=== PATIENT | male | born 1970 | race Caucasian/White ===

== ENCOUNTER 2016-07-12 06:13 | Inpatient (IN) ==
[2016-07-12] MEDS ORDERED: CeFAZolin Pre 2,000 MG/100 ML 2,000 MG/100 ML BAG IVPB ONE (06:49)
[2016-07-12] MEDS ORDERED: Heparin 1,000 UNITS/500 mL NS 500 ML ONE ×3 (06:54→16:31)
[2016-07-12] MEDS ORDERED: *HR* Propofol 200 MG/20 ML VIAL IVP ONE (06:56)
[2016-07-12] MEDS ORDERED: Lidocaine -MPF 2% 2 ML VIAL ONE (06:56)
[2016-07-12] MEDS ORDERED: *HR* Rocuronium Bromide 50 MG/5 ML VIAL ONE (06:56)
[2016-07-12] MEDS ORDERED: *HR* FentaNYL (PF) 100 MCG/2 ML VIAL ONE ×3 (06:56→14:16)
[2016-07-12] MEDS ORDERED: *HR* Midazolam HCl 2 MG/2 ML VIAL ONE (06:56)
[2016-07-12] MEDS ORDERED: *HR* Succinylcholine 200 MG/10 ML VIAL IVP ONE (06:56)
[2016-07-12] MEDS ORDERED: Lidocaine -MPF 4% 5 ML AMPUL ONE (06:56)
[2016-07-12] MEDS ORDERED: Ringers Solution, Lactated 1,000 ML IVC SCH (07:00)
[2016-07-12] MEDS ORDERED: Albuterol 2.5 MG/3 ML NEBULIZER ONE (07:02)
[2016-07-12] MEDS ORDERED: Albuterol 2.5 MG/3 ML NEBULIZER IH ONE (07:05)
--- NOTE | 2016-07-12 07:17 | Anesthesia Evaluation PreOp ---
Date of Encounter: 07/12/16 Time of Encounter: 07:16 - Past History Planned Operation: L fem-pop Cardiac History: [place] (1995 - medically managed), HTN, Hyperlipidemia, Other ( Severe PAD bilateral LE) Pulmonary History: Smoker, Asthma (mild) Other Medical History: Denies Any Significant HX Anesthesia History: No Prior Anesthetic Complications Alcohol Use: occasionally, recent Drug use: marijuana Medications and Allergies OxyCODONE/APAP 5/325 [Percocet 5/325 MG] 1 each PO Q8HR PRN #6 tablet 02/16/16 [ Rx] HYDROcodone/Acet 5/325 mg [Myrtle 5-325 mg] 1 tab PO Q4H PRN #15 tab 06/18/16 [Rx ] Ketorolac [Toradol] 10 mg PO Q6HR PRN #10 tablet 06/18/16 [Rx] Allergies propoxyphene [From Darvocet-N] Allergy (Verified 07/12/16 07:15) Hives - Meds/Allergy Pre-op Review Medications Reviewed: Yes Allergies Reviewed: Yes Beta Blockers on Current Med List: No Anesthesia Results - Labs Laboratory Tests 07/20/14 06/17/16 06/17/16 13:05 21:24 23:55 WBC 12.0 H Hgb 14.6 Hct 42.6 Plt Count 333 PT INR APTT Sodium 140 Potassium 4.2 Chloride 109 Carbon Dioxide 17 L BUN 8 Creatinine 0.95 Est GFR ( Amer) > 60 Est GFR (Non-Af Amer) > 60 BUN/Creatinine Ratio 8 Glucose 88 Lactic Acid 0.9 Calculated Osmolality 288 Calcium 10.2 07/06/16 09:30 WBC Hgb Hct Plt Count PT 11.1 INR 1.0 APTT 33.4 Sodium Potassium Chloride Carbon Dioxide BUN Creatinine Est GFR ( Amer) Est GFR (Non-Af Amer) BUN/Creatinine Ratio Glucose Lactic Acid Calculated Osmolality Calcium - Imaging EKG: report reviewed, image reviewed (SR) Additional studies: nuclear stress test: Perfusion imaging negative for ischemia/infarct pharm ECG negative for ischemia at level of HR achieved Gated EF = 66% Anesthesia Exam Last Vital Signs Temp 99.1 F 07/12/16 06:28 Pulse 63 07/12/16 06:28 Resp 18 07/12/16 06:28 BP 120/71 07/12/16 06:28 Pulse Ox 97 07/12/16 06:28 Weight: 76 kg NPO (# of Hours): >> 8 hrs - HEENT Pupil (Motor): Pupils equal, EOMI Mallampati: III Teeth: Poor dentition Oral Opening: Greater than 3 - [employer] SUPER[employer]OR LOC: Oriented - Cardiac Rhythm: Regular Murmur: None - Pulmonary Breath Sounds: bilateral Clear Respiratory Effort: Symmetrical Anesthesia Assess/Plan ASA Score: 3 Modified [place] Scale for Level of Consciousness: Cooperative, oriented, and tranquil Anesthetic Plan: General Monitoring Plan: Standard Monitors, A-Line Recovery Plan: PACU
--- NOTE | 2016-07-12 07:37 | History & Physical Report ---
Date of Encounter: 07/12/16 Time of Encounter: 07:25 24 Hour HP Update - Instructions Instructions: If the History and Physical is less than 30 days old and was completed prior to A.M. admission and or procedure and has NOT been updated on calendar day of procedure please complete this update prior to performing procedure. - Update Patient reports changes in Medical Condition: Yes Changes in assessment/condition: Yes Changes in Medication: Yes Preop tests/diagnostics Reviewed: Yes Surgery Remains Indicated: Yes Consent for Planned Operative Procedure(s) Verified: Yes - Pre-Operative Checklist Preoperative Checklist Indicated: Yes Prophylactic Antibiotic Ordered: Yes Home Medications Include Beta Dirk: No Beta Dirk Taken Today (Day of Surgery): No Beta Dirk Taken Yesterday (Day Prior to Surgery): No Is VTE Prophylaxis Indicated?: Yes
[2016-07-12] MEDS ORDERED: Dexamethasone 4 MG/ML VIAL ONE (08:18)
[2016-07-12] MEDS ORDERED: *HR* HYDROmorphone 2 MG/ML SYRINGE ONE (08:30)
[2016-07-12] MEDS ORDERED: *HR* Promethazine 25 MG/ML VIAL IVP PRN (08:37)
[2016-07-12] MEDS ORDERED: *HR* Labetalol 100 MG/20 ML MDV IVP PRN (08:37)
[2016-07-12] MEDS ORDERED: *HR* Heparin 5,000 UNIT/ML VIAL ONE ×2 (09:08→13:20)
[2016-07-12] MEDS ORDERED: Ondansetron 4 MG/2 ML VIAL ONE (13:18)
--- NOTE | 2016-07-12 14:20 | Operative Note ---
Date of procedure: 07/12/16 Pre-op diagnosis: pad/claudication Post-op diagnosis: same Procedure: left femoral to posterior tibial bypass graft with 6 mm PTFE distaflo Biopsy of left superficial femoral artery. Complications: none Anesthesia: GETA Surgeon: Terrence Nielson Estimated blood loss (cc): 200 Specimen: left SFA Condition: stable Disposition: PACU Procedure in Detail: History Kj Yoo is a 45-year-old white male who has a long history of lower extremity pain. He was eventually referred to vascular surgery after noninvasive testing revealed marked abnormalities particularly of his left lower extremity. A CT angiogram was performed on May 26 that demonstrated significant left superficial femoral and popliteal and tibial artery occlusions. The distribution was unusual and the possibility of an inflammatory condition such as Buerger's disease was raised by the interpreting radiologist. In addition the patient has proximal tibial artery occlusions on the right side. The patient now comes to the operating room today for the first time for an attempt at revascularizing the symptomatic and lifestyle limiting left lower extremity. Procedure After informed consent was obtained the patient was taken to the operating room. General endotracheal anesthesia was established under arterial line pressure monitoring. The left lower extremity was sterilely prepped and draped. A timeout protocol was observed. Because of the nature of his CT scan findings the initial dissection was at the below the knee popliteal and proximal tibial area. Dissection here revealed marked abnormalities with dense inflammatory changes involving all of the arteries in this region. The vessels were white and sclerotic in appearance without Doppler signals within them. They appeared to be lifeless vessels with chronic inflammatory changes. In order to find a suitable vessel for a distal anastomosis the dissection was carried more distally into the midportion of the calf. Here the posterior tibial artery was identified as soft and did have a Doppler signal. This corresponded to the findings on the CT angiogram preoperatively. The vessel measured approximately 4 mm in diameter and was soft. Attention was then directed to the inflow vessel. An oblique incision was made in the left groin and dissection was carried down to the common femoral artery and bifurcation. The superficial femoral artery was also densely inflamed and had the White lifeless appearance as the more distal vessels. The common femoral artery was soft and had an excellent pulse. The profunda femoris appeared to be spared as well. Attention was then directed to the greater saphenous vein. This was identified in the groin and was dissected along the course of the vein on the medial aspect of the left thigh. In the distal one fourth of the left thigh the vein contracted to a very small diameter. Attempts at trying to dilate this by dissecting other areas and opening the region with heparinized saline were unsuccessful and unsatisfactory. Therefore the vein was rejected as a suitable conduit to create this bypass graft. Therefore a synthetic graft would be necessary and a 6 mm PTFE Distaflo was selected. A subsartorial tunnel was created and then the patient was heparinized with 5000 units of heparin intravenously. The distal anastomosis was created first due to the fluted end of the Distaflo graft. The posterior tibial artery was opened and significant flow from the collaterals were noted though there was no antegrade flow. Retrograde flow was also observed. The anastomosis was then fashioned and in an end to side configuration using 6-0 Prolene. The graft was unclamped and the surrounding vessels were freed. Attention was then directed to the proximal aspect. An arteriotomy was made over the distal anterior aspect of the common femoral artery. An end-to-side graft anastomosis was created using 6-0 Prolene. After appropriate backbleeding and flushing the graft was opened and pulsatile flow was then achieved into the posterior tibial artery with a strong biphasic signal identified at the ankle. The incisions were then irrigated and hemostasis achieved. The incisions were closed using absorbable suture. There were no intraoperative complications. The estimated blood loss was 200 mL. Because of the inflammatory changes a section of the chronically thrombosed proximal left superficial femoral artery was dissected and harvested and submitted as a formal biopsy in formalin. The vessel upon visual inspection was a sclerotic scarred structure with inflammatory changes in the surrounding periadventitial material. There were no fresh clot or signs of dissection.
[2016-07-12] MEDS: *HR* HYDROmorphone (PF) 1 MG/ML SYRINGE IVP PRN ×9 (14:35→22:10)
[2016-07-12] MEDS ORDERED: *HR* HYDROmorphone (PF) 1 MG/ML SYRINGE ONE (15:05)
--- NOTE | 2016-07-12 15:46 | Anesthesia Evaluation Post Op ---
Date of Encounter: 07/12/16 Time of Encounter: 15:45 - Vital Signs Vital Signs: Vital Signs/O2 Sat/Glucose, Most Current Temp Pulse Resp BP Pulse Ox 07/12/16 15:28 98.9 F 66 16 131/69 99 07/12/16 15:18 70 16 142/70 100 07/12/16 15:08 80 14 151/85 100 07/12/16 14:58 99 F 73 16 142/88 99 07/12/16 14:48 64 16 148/92 98 07/12/16 14:38 70 16 138/100 100 07/12/16 14:28 98.8 F 76 14 141/116 100 - Lungs Lungs: Clear Ascult./Percussion - Airway Airway: Non-obstructed - Cardiovascular Regular Rate - Mental Status Mental Status: Alert & Oriented, Answers Appropriately - Pain Pain Scale: 0 - Nausea Vomiting Nausea Vomiting: Not Present - Hydration Hydration: Ice chips - Discharge PostOp Status: Transfer Patient to floor
[2016-07-12] MEDS ORDERED: Ondansetron 4 MG/2 ML VIAL IVP PRN (15:55)
[2016-07-12] MEDS ORDERED: Acetaminophen 325 MG TABLET PO PRN (15:55)
[2016-07-12] MEDS ORDERED: Naloxone 0.4 MG/ML INJ IVP PRN (15:55)
[2016-07-12] MEDS ORDERED: tiZANidine 4 MG TABLET PO PRN (15:55)
[2016-07-12] MEDS ORDERED: *HR* Morphine 2 MG/ML SYRINGE ONE (15:58)
[2016-07-12] MEDS: *HR* Morphine 2 MG/ML SYRINGE IVP PRN ×2 (16:00→16:17)
[2016-07-12] MEDS ORDERED: *HR* HYDROmorphone (PF) 1 MG/ML SYRINGE IM ONE (16:14)
[2016-07-12] MEDS: Gabapentin 400 MG CAPSULE PO SCH ×2 (16:25→19:55)
[2016-07-12] MEDS: ceFAZolin 2,000 MG in D5% in Water 100 ML IVPB SCH (16:40)
[2016-07-12] MEDS: *HR* HYDROcodone/Acet 5/325 mg TABLET PO PRN (20:57)
[2016-07-12] MEDS ORDERED: Loratadine 10 MG TABLET PO SCH (21:00)
[2016-07-13] MEDS: *HR* HYDROmorphone (PF) 1 MG/ML SYRINGE IVP PRN ×7 (00:17→13:29)
[2016-07-13] MEDS: ceFAZolin 2,000 MG in D5% in Water 100 ML IVPB SCH (00:18)
[2016-07-13 04:33] LABS: Basophils % 0.2 %; Eosinophils # 0.1 K/mcL (0.0-0.6); Eosinophils % 1.1 %; Hematocrit 32.5 % (37.5-50.1); Hemoglobin 11.1 g/dL (12.9-16.9); Immature Granulocytes % 0.2 % (0-4); Lymphocytes # 3.3 K/mcL (0.6-4.6); Lymphocytes % 32.9 %; Mean Corpuscular HGB Conc 34.2 g/dL (31.6-35.5); Mean Corpuscular Hemoglobin 31.1 pg (28.0-33.3); Mean Platelet Volume 8.8 fL (9.4-12.4); Monocytes # 0.9 K/mcL (0.0-1.3); Monocytes % 9.4 %; Neutrophils # 5.6 K/mcL (1.6-8.9); Platelet Count 283 K/mcL (140-400); Red Blood Count 3.57 M/mcL (4.19-5.50); Red Cell Distribution Width 12.3 % (11.5-14.5); Segmented Neutrophils % 56.2 %
[2016-07-13 04:51] LABS: BUN/Creatinine Ratio 13 (6-26); Blood Urea Nitrogen 10 mg/dL (8-26); Calcium 8.5 mg/dL (8.6-10.8); Carbon Dioxide 23 mEq/L (19-29); Chloride 106 mEq/L (98-109); Glucose 117 mg/dL (70-99); Osmolality,Calculated 288 (280-300); Potassium 4.2 mEq/L (3.5-4.5); Sodium 139 mEq/L (136-145); eGFR For African Americans > 60 (> 60); eGFR For Non-African Americans > 60 (> 60)
[2016-07-13] MEDS: *HR* HYDROcodone/Acet 5/325 mg TABLET PO PRN (07:37)
[2016-07-13] MEDS: Gabapentin 400 MG CAPSULE PO SCH ×2 (07:45→17:20)
[2016-07-13] MEDS ORDERED: valACYclovir 500 MG TABLET PO SCH (09:00)
[2016-07-13] MEDS: *HR* OxyCODONE/APAP 5/325 TABLET PO PRN ×2 (12:17→16:05)
[2016-07-13 15:23] VITALS: BP 117/81
[2016-07-13] MEDS ORDERED: *HR* Rivaroxaban 10 MG TABLET PO SCH (17:00)
--- NOTE | 2016-07-13 17:15 | Discharge Summary ---
Date of Encounter: 07/13/16 Time of Encounter: 17:10 - Discharge Diagnosis (1) PAD (peripheral artery disease) Priority: Primary Status: Acute Comments: Patient has long history of bilateral lower extremity leg pain. The patient has abnormal noninvasive testing and an abnormal CT angiogram. He has an odd distribution all of the occlusive disease involving on the left side the superficial femoral and popliteal and tibial vessels. On the right side the occlusions are more focal to the proximal third of the tibial vessels. - Discharge Medications Prescriptions: OxyCODONE/APAP 5/325 [Percocet 5/325 MG] 1 each PO Q4HR PRN #40 tablet PRN Reason: Pain Rivaroxaban [Xarelto] 20 mg PO 1700 #30 tablet Home Medications: Cetirizine HCl [Zyrtec] 10 mg PO HS 07/12/16 [History] Cilostazol [Pletal] 100 mg PO BID 07/12/16 [History] Gabapentin [Neurontin] 800 mg PO TID 07/12/16 [History] Tizanidine HCl 4 mg PO TID PRN 07/12/16 [History] Valacyclovir HCl [Valtrex] 1,000 mg PO DAILY 07/12/16 [History] OxyCODONE/APAP 5/325 [Percocet 5/325 MG] 1 each PO Q4HR PRN #40 tablet 07/13/16 [Rx] Rivaroxaban [Xarelto] 20 mg PO 1700 #30 tablet 07/13/16 [Rx] Allergies/Adverse Reactions: Allergies propoxyphene [From Darvocet-N] Allergy (Verified 07/12/16 07:15) Hives Date of admission: 07/12/16 14:30 Primary care physician: Flash Mcrae DO Consults: 07/12/16 17:39 Consult to Speech And Drama Teacher [CONS] Routine Reason for SW Consult: evaluate for Xarelto tx as an out patient for graft patency 07/13/16 11:26 Consult to Occupational Therapy [CONS] Routine Comment: Evaluate, develop and implement POC Consult to Physical Therapy [CONS] Routine Comment: Evaluate, develop and implement POC Procedure(s) Performed: Left femoral to posterior tibial artery bypass graft with 6 mm PTFE Distaflo and left superficial femoral artery excisional biopsy. Discharging clinician: Terrence Nielson Anticipated date of discharge: 07/13/16 - Patient Status Disposition: Home, Self-Care Condition: Good Functional capacity at discharge: uses cane/walker Overall status at discharge: patient is progressing back to baseline - Discharge Instructions Follow Up With: Flash Mcrae DO [Primary Care Provider] - 07/19/16 11:30 am Terrence Nielson MD [Partnered Physician] - 07/27/16 9:30 am Additional Instructions: Keep left lower extremity incisions dry for total of 5 days following surgery. No automobile driving. Patient is encouraged to ambulate every day for 20 minutes twice a day. Patient may ambulate both inside and outside. Patient may use stairs as tolerated. Patient is to elevate left lower extremity while at rest. - Diet and Activity Activity: increase activity as tolerated Diet: low fat, low cholesterol - Hospital Course Hospital course: Mr. Yoo is a 45 year old male With bilateral lower extremity pain. He had been treated in conservative fashion in an attempt to try to cease all tobacco use and increased physical activity and use cilostazol. The patient did not have any significant improvement with these efforts and was unable to stop smoking. His lifestyle is significantly impacted and the patient had requested revascularization to try to enhance his status. The patient was admitted yesterday and underwent surgery for left lower extremity reconstruction. The patient was found to have extensive vascular occlusions as depicted on his preoperative CT angiogram. The greater saphenous vein was found to be inadequate for use as a conduit and so therefore a synthetic graft was necessary. The bypass graft extends from his left common femoral artery to the left posterior tibial artery. Because of the synthetic graft going to a tibial vessel anticoagulation was recommended and he was initiated on Zarontin. This will be continued indefinitely in order to prolong graft patency. Following surgery the patient had an uneventful course. He had some difficulties bearing weight on his left leg as expected due to the extensive muscular dissection in order to identify the posterior tibial artery and to create the anastomosis. The patient had a strong Doppler signal at the ankle of the posterior tibial artery. No Doppler signals were identified in the dorsalis pedis or peroneal artery at the ankle. Instructions in regards to his diet and exercise and wound care was provided to the patient prior to discharge. The patient was seen by physical therapy prior to his discharge. He was aided in his ambulation with a walker and a prescription for this will be given to the patient upon discharge. Time spent discussing smoking cessation with patient: 3 to 10 minutes (Complete tobacco cessation was emphasized with the patient.) - Time Spent with Patient Total time spent providing and/or coordinating discharge services: Exam Vital Signs, Last 4 Hours Temp Pulse Resp BP Pulse Ox 07/13/16 15:22 99.9 F H 70 18 117/81 98 07/13/16 15:18 99.1 F 101 20 146/84 97 07/13/16 15:00 78 General: Present: Conversant, No Apparent Distress HEENT: Present: Atraumatic Neck: Absent: JVD Cardiac: Present: Reg Rate and Rhythm Neuro: Present: Alert and responsive, No focal deficits noted, Cranial nerves grossly intact Abdomen: Present: Soft, Non-tender Vascular: Present: Color/Temperature (Normal left foot color and temperature.), Other (Doppler signals over posterior tibial artery at ankle.) Skin: Present: No rashes noted on visualized skin - VTE Documentation of Mechanical Device: Intermittent pneumatic compression device
== END 2016-07-13 18:55 | disposition home or self-care (01) | DRG 181 ==
LOC: SAMDAY 06:13 → 2NNU 14:30
PROVIDERS: ADMIT Surgery Vascular Surgery; ATTEND Surgery Vascular Surgery

== ENCOUNTER 2016-11-15 10:07 | Inpatient (IN) ==
[~2016-11-15 10:07] MED LIST: *HR* FentaNYL (PF) 100 MCG/2 ML VIAL ONE; *HR* Midazolam HCl 2 MG/2 ML VIAL ONE; *HR* Propofol 200 MG/20 ML VIAL IVP ONE; *HR* Succinylcholine 200 MG/10 ML VIAL IVP ONE; Lidocaine -MPF 2% 2 ML VIAL ONE; Lidocaine -MPF 4% 5 ML AMPUL ONE
[2016-11-15] MEDS ORDERED: *HR* Heparin 5,000 UNIT/ML VIAL ONE (10:11)
[2016-11-15] MEDS ORDERED: Albuterol 2.5 MG/3 ML NEBULIZER IH ONE (10:27)
[2016-11-15] MEDS ORDERED: CeFAZolin Pre 2,000 MG/100 ML 2,000 MG/100 ML BAG IVPB ONE (10:27)
[2016-11-15] MEDS ORDERED: Lidocaine -MPF 1% 2 ML VIAL ID ONE (10:27)
[2016-11-15] MEDS ORDERED: Albuterol 2.5 MG/3 ML NEBULIZER ONE (10:29)
[2016-11-15] MEDS ORDERED: Ringers Solution, Lactated 1,000 ML IVC SCH (10:30)
[2016-11-15] MEDS ORDERED: Ondansetron 4 MG/2 ML VIAL ONE ×2 (10:44→18:09)
[2016-11-15] MEDS ORDERED: Dexamethasone 4 MG/ML VIAL ONE ×2 (10:44→18:09)
--- NOTE | 2016-11-15 11:16 | Anesthesia Evaluation PreOp ---
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 Other Medical History: Denies Any Significant HX Anesthesia History: No Prior Anesthetic Complications, Past Anesthesia (L fem- pop with synthetic graft, ex-lap (small bowel), cholecystectomy, T&A) Alcohol Use: occasionally, recent Drug use: marijuana Medications and Allergies Cetirizine HCl [Zyrtec] 10 mg PO HS 07/12/16 [History] Cilostazol [Pletal] 100 mg PO BID 07/12/16 [History] Gabapentin [Neurontin] 800 mg PO TID 07/12/16 [History] Valacyclovir HCl [Valtrex] 1,000 mg PO DAILY PRN 07/12/16 [History] Allergies propoxyphene [From Darvocet-N] Allergy (Verified 11/15/16 10:31) Hives - Meds/Allergy Pre-op Review Medications Reviewed: Yes Allergies Reviewed: Yes Beta Blockers on Current Med List: No Anesthesia Results - Labs Laboratory Tests 11/12/16 11/12/16 11/12/16 12:53 12:53 12:53 WBC 5.7 Hgb 14.2 Hct 43.1 Plt Count 351 PT 10.5 INR 1.0 APTT 33.2 Sodium 142 Potassium 4.3 Chloride 110 H Carbon Dioxide 22 BUN 10 Creatinine 0.89 Est GFR ( Amer) > 60 Est GFR (Non-Af Amer) > 60 BUN/Creatinine Ratio 11 Glucose 109 H Calculated Osmolality 294 Calcium 9.7 - Imaging EKG: report reviewed, image reviewed (SR) Anesthesia Exam Last Vital Signs Temp 98.4 F 11/15/16 10:33 Pulse 66 11/15/16 10:33 Resp 18 11/15/16 10:40 BP 114/74 11/15/16 10:33 Pulse Ox 96 11/15/16 10:40 Weight: 78 kg NPO (# of Hours): >> 8 hrs - HEENT Pupil (Motor): Pupils equal, EOMI Mallampati: III Teeth: Poor dentition Oral Opening: Greater than 3 - ELECTRONICS WORKER LOC: Oriented - Cardiac Rhythm: Regular Murmur: None - Pulmonary Breath Sounds: bilateral Clear Respiratory Effort: Symmetrical Anesthesia Assess/Plan ASA Score: 3 Modified [place] Scale for Level of Consciousness: Cooperative, oriented, and tranquil Anesthetic Plan: General Monitoring Plan: Standard Monitors, A-Line Recovery Plan: PACU
--- NOTE | 2016-11-15 11:27 | History & Physical Report ---
Date of Encounter: 11/15/16 Time of Encounter: 11:27 24 Hour HP Update - Instructions Instructions: If the History and Physical is less than 30 days old and was completed prior to A.M. admission and or procedure and has NOT been updated on calendar day of procedure please complete this update prior to performing procedure. - Update Patient reports changes in Medical Condition: No Changes in examination, assessment, or condition: No Changes in Medication: No Preop tests/diagnostics Reviewed: Yes Surgery Remains Indicated: Yes Consent for Planned Operative Procedure(s) Verified: Yes - Pre-Operative Checklist Preoperative Checklist Indicated: Yes Prophylactic Antibiotic Ordered: Yes Home Medications Include Beta Dirk: No Beta Dirk Taken Today (Day of Surgery): No Beta Dirk Taken Yesterday (Day Prior to Surgery): No Is VTE Prophylaxis Indicated?: Yes
[2016-11-15] MEDS ORDERED: Heparin 1,000 UNITS/500 mL NS 500 ML ONE ×3 (11:30→17:12)
[2016-11-15] MEDS ORDERED: Acetaminophen IV 1,000 MG/100 ML INFUS..BTL ONE (11:40)
[2016-11-15] MEDS ORDERED: Gabapentin 300 MG CAPSULE ONE (11:40)
[2016-11-15] MEDS ORDERED: Heparin 1,000 UNITS/500 mL NS 0 ML ONE (11:52)
[2016-11-15] MEDS ORDERED: *HR* Promethazine 25 MG/ML VIAL IVP PRN (15:53)
[2016-11-15] MEDS ORDERED: *HR* Labetalol 100 MG/20 ML MDV IVP PRN (15:53)
[2016-11-15] MEDS ORDERED: *HR* HYDROmorphone 2 MG/ML SYRINGE ONE (16:54)
--- NOTE | 2016-11-15 18:27 | Operative Note ---
Date of procedure: 11/15/16 Pre-op diagnosis: PAD/claudication Post-op diagnosis: same Procedure: left fem-TPT bypass graft thrombectomy tibial thrombectomy revision of bypass with jump graft extension to distal posterior tibial artery with reversed greater saphenous vein intra operative ultrasound for vein mapping Complications: none Anesthesia: GETA Surgeon: Terrence Nielson Estimated blood loss (cc): 300 Specimen: none Condition: stable Disposition: PACU Procedure in Detail: History Kj Yoo is a 45-year-old white male who had undergone previous bypass grafting with a left femoral to tibial peroneal trunk with endarterectomy. The graft has gone on to thrombose and return of his left lower extremity symptoms. These are lifestyle limiting with a dramatic drop in his ankle brachial index and loss of palpable popliteal and pedal pulses. Because of these symptoms patient was recommended to undergo surgery in order to revascularize the left lower extremity to permit him a more active and functional lifestyle. Procedure After informed consent was obtained patient was taken the operating room. General endotracheal anesthesia was established. The left lower extremity was sterilely prepped and draped. A timeout protocol was observed. The operation was initiated at the below the knee popliteal incision from the previous operation. Dissection was carried down to identify the graft and the distal anastomosis. This area was densely inflamed with extremely difficult and tedious dissection necessary in order to free up the graft and identify the [place] vessels. With this finally done after much labor and incision was made over the graft near the root of the graft. Chronic thrombus was identified. There is no back bleeding either from the graft or from the [place] vessels at the calf. The graft itself was collapsed. A 3 and 4 [place] catheter was then passed retrograde. Pulsatile flow was unable to be restored. Therefore a second incision was made in the groin. The previously made groin incision was then reopened and dissection was carried down to reveal the graft anastomosis to the common femoral artery. Again there was marked inflammatory change in this area and dense scar tissue. This area was controlled and a transverse graftotomy made. Should be noted patient was placed on intravenous heparin bolus during this time. Again chronic thrombus and intimal hyperplasia was encountered. The debris in the common femoral area was removed. Excellent pulsatile flow was achieved. The graftotomy here proximal was then closed with 6 -0 Prolene. Attention was then directed back to the distal aspect. Attempting to pass a catheter into the [place] vessels at the tibial peroneal trunk and tibial runoff was unsuccessful. Therefore was elected to remove the anastomosis from the artery. Upon doing so it was found that the tibial peroneal trunk was totally obliterated. No lumen could be identified despite the attempts at passing the 3 [place] catheter to thrombectomize the tibial vessels. With this done there was no option to manipulate the original distal anastomosis as this vessel was beyond reconstruction and the patient's prognosis is extremely grim. Therefore the incision was extended and the posterior tibial artery more distally was identified. This vessel was soft and appeared to be patent. There was no inflammatory change directly around this vessel. Due to the size discrepancy between the synthetic graft in the [place] vessel it was judged inappropriate to try to use a synthetic graft into this smaller tibial artery. Also the patient's track record is poor with this synthetic graft. Therefore the hybrid solution was sought. An ultrasound was then performed at the patient's bedside. An ultrasound was made of the soft tissue in order to identify a usable vein at the level of the ankle. This was identified and found to be a compressible vein appropriate in diameter of approximately 3 mm. Therefore a incision was made at the ankle and carried up to the calf incision previously extended so that the greater saphenous vein at the lower part of the leg could be identified and harvested. This was taken and the vein was flushed. The vein was then placed in a reversed orientation. An end -to-end anastomosis was made between the vein and the transected synthetic graft from the area of the previous tibial peroneal trunk bypass. After this was done an arteriotomy was made over the distal posterior tibial artery. This was a soft vessel. There is no intraluminal thrombus. There were some changes of atherosclerotic material proximally. The vessel was then flushed proximally and distally with heparinized saline. An end of the vein to side of the artery anastomosis was then performed with 6-0 Prolene. After appropriate backbleeding and flushing the graft was opened. The flow was unsatisfactory. Therefore the graft in the upper thigh was explored. It was opened and a repeat graft exploration was made with thrombectomy using the 4 [place] catheter. Particular attention was paid to place the graft through the proximal anastomosis and into the [place] iliac circulation. Upon doing this excellent pulsatile flow was then reassessed established as was done earlier during this case. Excellent pulsatile flow was demonstrated in the graft and into the posterior tibial artery. This last graftotomy performed at the previously placed graft was then closed with 6-0 Prolene. Excellent pulsatile flow was established. Doppler signals are identified at the posterior tibial and peroneal artery at the ankle. The wounds were then all irrigated and hemostasis achieved. The wounds were closed in layers using absorbable suture. Dry sterile dressings were applied. The patient was excreted in the operating room and taken to the recovery room in stable condition. There were no intraoperative complications. Estimated blood loss is 300 mL.
[2016-11-15] MEDS: *HR* HYDROmorphone (PF) 1 MG/ML SYRINGE IVP PRN ×4 (18:59→19:17)
--- NOTE | 2016-11-15 19:39 | Anesthesia Evaluation Post Op ---
Date of Encounter: 11/15/16 Time of Encounter: 19:39 - Vital Signs Vital Signs: Vital Signs/O2 Sat, Most Current Temp Pulse Resp BP Pulse Ox 98.1 F 68 16 121/88 99 11/15/16 19:35 11/15/16 19:35 11/15/16 19:35 11/15/16 19:35 11/15/16 19:35 - Lungs Lungs: Clear Ascult./Percussion - Airway Airway: Non-obstructed - Cardiovascular Regular Rate - Mental Status Mental Status: Asleep with brisk response to light stimulation - Pain Pain Scale: 6 Pain Scale used: Numeric (1 - 10) - Nausea Vomiting Nausea Vomiting: Not Present - Hydration Hydration: NPO, Reis catheter - Discharge PostOp Status: Transfer Patient to floor
[2016-11-15] MEDS ORDERED: Ondansetron 4 MG/2 ML VIAL IVP PRN (19:53)
[2016-11-15] MEDS ORDERED: Acetaminophen 325 MG TABLET PO PRN (19:53)
[2016-11-15] MEDS ORDERED: Naloxone 0.4 MG/ML INJ IVP PRN (19:53)
[2016-11-15] MEDS ORDERED: valACYclovir 500 MG TABLET PO PRN (19:53)
[2016-11-15] MEDS: Gabapentin 400 MG CAPSULE PO SCH (20:47)
[2016-11-15] MEDS: *HR* Morphine 2 MG/ML SYRINGE IVP PRN ×2 (20:50→23:04)
[2016-11-15] MEDS ORDERED: Loratadine 10 MG TABLET PO SCH (21:00)
[2016-11-15] MEDS: ceFAZolin 2,000 MG in D5% in Water 100 ML IVPB SCH (23:04)
[2016-11-16] MEDS: *HR* Morphine 2 MG/ML SYRINGE IVP PRN ×6 (01:02→12:12)
[2016-11-16 05:48] LABS: Basophils % 0.1 %; Eosinophils % 0.1 %; Hematocrit 36.3 % (37.5-50.1); Immature Granulocytes % 0.4 % (0-4); Lymphocytes % 7.6 %; Mean Corpuscular HGB Conc 33.1 g/dL (31.6-35.5); Mean Corpuscular Hemoglobin 29.9 pg (28.0-33.3); Mean Corpuscular Volume 90.5 fL (83.0-100.0); Mean Platelet Volume 9.2 fL (9.4-12.4); Monocytes # 0.4 K/mcL (0.0-1.3); Monocytes % 3.9 %; Neutrophils # 9.8 K/mcL (1.6-8.9); Platelet Count 279 K/mcL (140-400); Red Blood Count 4.01 M/mcL (4.19-5.50); Red Cell Distribution Width 13.3 % (11.5-14.5); Segmented Neutrophils % 87.9 %
[2016-11-16 05:50] LABS: BUN/Creatinine Ratio 11 (6-26); Blood Urea Nitrogen 9 mg/dL (8-26); Calcium 9.3 mg/dL (8.6-10.8); Carbon Dioxide 27 mEq/L (19-29); Chloride 108 mEq/L (98-109); Glucose 143 mg/dL (70-99); Osmolality,Calculated 295 (280-300); Potassium 4.3 mEq/L (3.5-4.5); Sodium 142 mEq/L (136-145); eGFR For African Americans > 60 (> 60); eGFR For Non-African Americans > 60 (> 60)
[2016-11-16 06:01] LABS: Lymphocytes # 0.8 K/mcL (0.6-4.6)
[2016-11-16] MEDS: Gabapentin 400 MG CAPSULE PO SCH ×2 (08:02→15:58)
[2016-11-16] MEDS: ceFAZolin 2,000 MG in D5% in Water 100 ML IVPB SCH ×2 (08:03→15:59)
[2016-11-16] MEDS ORDERED: *HR* Rivaroxaban 10 MG TABLET PO SCH ×2 (09:00→17:00)
[2016-11-16] MEDS: *HR* OxyCODONE/APAP 5/325 TABLET PO PRN ×2 (09:25→13:22)
[2016-11-16 15:59] VITALS: BP 115/65
== END 2016-11-16 19:01 | disposition home or self-care (01) | DRG 181 ==
LOC: SAMDAY 10:07 → 2NNU 17:54
PROVIDERS: ADMIT Surgery Vascular Surgery; ATTEND Surgery Vascular Surgery

== ENCOUNTER 2019-07-08 21:54 | Observation (INO) ==
[2019-07-08] MEDS ORDERED: Aspirin 81 MG TAB.CHEW PO ONE (22:52)
[2019-07-08] MEDS ORDERED: Isovue-370 500 ML BOTTLE IVP ONE (22:52)
[2019-07-08 23:32] LABS: Basophils % 0.4 %; Eosinophils # 0.2 K/mcL (0.0-0.6); Eosinophils % 3.1 %; Hematocrit 45.1 % (37.5-50.1); Immature Granulocytes % 0.3 % (0-4); Lymphocytes # 2.4 K/mcL (0.6-4.6); Lymphocytes % 31.2 %; Mean Corpuscular HGB Conc 33.3 g/dL (31.6-35.5); Mean Corpuscular Hemoglobin 29.7 pg (28.0-33.3); Mean Corpuscular Volume 89.3 fL (83.0-100.0); Monocytes # 0.5 K/mcL (0.0-1.3); Monocytes % 6.2 %; Neutrophils # 4.5 K/mcL (1.6-8.9); Platelet Count 310 K/mcL (140-400); Prothrombin Time 22.3 Seconds (9.4-12.1); Red Blood Count 5.05 M/mcL (4.19-5.50); Red Cell Distribution Width 13.5 % (11.5-14.5); Segmented Neutrophils % 58.8 %; White Blood Count 7.6 K/mcL (4.3-11.1)
[2019-07-08 23:35] LABS: Activated Partial Thrombo Time 47.6 Seconds (26.0-36.0)
[2019-07-09 00:32] LABS: Troponin I < 0.03 ng/mL (< 0.04)
[2019-07-09 00:40] LABS: Alanine Aminotransferase 48 Units/L (7-52); Albumin 4.5 g/dL (3.5-5.7); Albumin/Globulin Ratio 1.7 (1.1-2.2); Alkaline Phosphatase 73 Units/L (34-104); Aspartate Amino Transferase 27 Units/L (13-39); BUN/Creatinine Ratio 20 (6-26); Bilirubin,Direct 0.1 mg/dL (0.0-0.2); Bilirubin,Indirect 0.2 mg/dL (0.0-1.0); Bilirubin,Total 0.3 mg/dL (0.3-1.0); Blood Urea Nitrogen 17 mg/dL (6-20); Calcium 9.7 mg/dL (8.6-10.3); Carbon Dioxide 22 mEq/L (23-29); Chloride 105 mEq/L (98-107); Globulin 2.7 g/dL (2.4-3.5); Glucose 94 mg/dL (70-105); Lipase 25 Units/L (11-82); Osmolality,Calculated 287 (280-300); Potassium 4.2 mEq/L (3.5-5.1); Sodium 138 mEq/L (136-145); Total Protein 7.2 g/dL (6.4-8.9); eGFR For African Americans > 60 (> 60); eGFR For Non-African Americans > 60 (> 60)
[2019-07-09] MEDS ORDERED: Orphenadrine 60 MG/2 ML VIAL IVP ONE ×2 (01:14→03:06)
[2019-07-09 06:47] VITALS: BP 136/96
[2019-07-09] MEDS ORDERED: Naloxone 0.4 MG/ML INJ IVP PRN (07:26)
[2019-07-09] MEDS ORDERED: ALPRAZolam 1 MG TABLET PO PRN (10:37)
[2019-07-09] MEDS ORDERED: Acetaminophen 325 MG TABLET PO PRN (10:38)
[2019-07-09] MEDS ORDERED: Regadenoson 0.4 MG/5 ML SYRINGE IVP ONE (10:55)
[2019-07-09] MEDS ORDERED: FLUoxetine 20 MG CAPSULE PO SCH (12:30)
[2019-07-09] MEDS ORDERED: *HR* Warfarin 2.5 MG TABLET PO ONE (18:00)
[2019-07-09] MEDS ORDERED: Warfarin perPT PO PRN (18:00)
[2019-07-09] MEDS ORDERED: Mirtazapine 15 MG TABLET PO SCH (21:00)
[2019-07-09] MEDS ORDERED: ARIPiprazole 5 MG TABLET PO SCH (21:00)
[2019-07-10] MEDS ORDERED: FLUoxetine 20 MG CAPSULE PO SCH (09:00)
== END 2019-07-09 14:00 | disposition left against medical advice (07) ==
LOC: EMEROOARM 21:54 → CDU 21:54 → SUATTDRO 07-09 03:31 → CDU 07-09 04:46
PROVIDERS: ADMIT Internal Medicine; ATTEND Internal Medicine